=== PATIENT | male | born 1990 | race Caucasian/White ===

== ENCOUNTER 2016-05-27 02:06 | Emergency (ER) ==
[2016-05-27 02:19] VITALS: TEMP 98.8; BMI 37.8
[2016-05-27] MEDS ORDERED: SODIUM CHLORIDE 1,000 ML IV STA (02:35)
[2016-05-27] MEDS ORDERED: DEMEROL 25 MG/ML SYRINGE IVP STA (02:35)
[2016-05-27] MEDS ORDERED: ZOFRAN 4 MG/2 ML IVP STA ×2 (02:35→06:13)
[2016-05-27 02:49] LABS: BASOPHILS % (AUTO) 0.5 % (0.0-3.0); EOSINOPHILS # (AUTO) 0.1 K/ul (0.0-0.7); EOSINOPHILS % (AUTO) 1.1 % (0.0-7.0); HEMATOCRIT 47.3 % (42.0-52.0); HEMOGLOBIN 15.5 g/dl (14.0-18.0); IMMATURE GRANULOCYTE % (AUTO) 0.3 % (0.0-5.0); LYMPHOCYTES # (AUTO) 0.9 K/uL (0.60-3.4); LYMPHOCYTES % (AUTO) 9.7 (10.0-50.0); MEAN CORPUSCULAR HEMOGLOBIN 28.2 pg (27.0-31.0); MEAN CORPUSCULAR HGB CONC 32.8 (31.8-35.4); MONOCYTES # (AUTO) 0.8 K/uL (0.4-2.0); NEUTROPHILS % (AUTO) 79.4; PLATELET COUNT 241 10^3/uL (140-440); WHITE BLOOD COUNT 8.77 K/ul (4.2-10.2)
[2016-05-27 03:05] LABS: ALBUMIN 3.5 g/dL (3.4-5.0); ALBUMIN/GLOBULIN RATIO 1.03; ANION GAP 10.6; BILIRUBIN,TOTAL 0.73 mg/dL (0.00-1.20); BUN/CREATININE RATIO 10.58; CALCIUM 8.5 mg/dL (8.2-10.2); CREATININE 0.85 mg/dL (0.60-1.10); POTASSIUM 3.6 mmol/L (3.5-5.1); TOTAL PROTEIN 6.9 g/dL (6.4-8.2)
--- NOTE | 2016-05-27 03:56 | CT ---
EXAM: CT abdomen pelvis without intravenous contrast 05/27/2016. Sagittal and coronal reformatted images obtained HISTORY: Vomiting COMPARISON: 05/27/2014 FINDINGS: Hepatic steatosis. The liver and gallbladder show no acute abnormality. The adrenal glands and kidneys show no acute abnormality. There is no urinary obstruction. The spleen and pancreas show no acute abnormality. No bowel obstruction. Normal appendix. Unremarkable urinary bladder. No free air or free fluid. No acute osseous abnormality IMPRESSION: 1. Hepatic steatosis. 2. No urinary or bowel obstruction and normal appendix. 3. No acute inflammatory process identified within the abdomen or pelvis within the limitation of a noncontrast enhanced examination.
[2016-05-27 06:05] LABS: BILIRUBIN,URINE Negative (NEGATIVE); KETONES,URINE Negative (NEGATIVE); LEUKOCYTE ESTERASE ,URINE Negative (NEGATIVE); NITRITE,URINE Negative (NEGATIVE); PROTEIN,URINE Trace (NEGATIVE); URINE, BLOOD Negative (NEGATIVE)
[2016-05-27 06:11] VITALS: BP 158/109
--- NOTE | 2016-05-27 06:16 | ED.PDOC ---
General ED Provider: Dr. GERALD GARAY-ER Chief Complaint: Nausea/Vomiting Stated Complaint: im throwin up and having diarrhea Time Seen by Physician: 02:10 Mode of Arrival: Walk-In Information Source: Patient Exam Limitations: No limitations Nursing and Triage Documentation Reviewed and Agree: Yes GI Complaint Exam - Vomiting/Diarrhea Complaint/Exam Onset/Duration: less than 24hrs Symptoms Are: Still present Episodes of Vomiting over last 24 Hours: 5 Episodes of Diarrhea Over Last 24 Hours: 3 Initial Severity: Mild Current Severity: Mild Character of Vomiting: Reports: Non-bilious Character of Diarrhea: Reports: Watery Aggravating: Reports: None Alleviating: Reports: None Associated Signs and Symptoms: Denies: Dizziness, Light-headedness, Melena, Hematemesis, Fever, Abdominal pain, Cramping Non-GI Risk Factors: Reports: None Related Surgical History: Reports: None Abdominal Findings: Present: None Kussmaul Respirations Present: No Differential Diagnoses: Dehydration, Viral Gastroenteritis, Bacterial Gastroenteritis, UTI Review of Systems - Review Of Systems Constitutional: Reports: No symptoms Eyes: Reports: No symptoms Ears, Nose, Mouth, Throat: Reports: No symptoms Respiratory: Reports: No symptoms Cardiac: Reports: No symptoms GI: Reports: Diarrhea, Nausea, Vomiting : Reports: No symptoms Musculoskeletal: Reports: No symptoms Skin: Reports: No symptoms Neurological: Reports: No symptoms Endocrine: Reports: No symptoms Hematologic/Lymphatic: Reports: No symptoms All Other Systems: Reviewed and Negative Past Medical History - Past Medical History Endocrine: Reports: Unknown Cardiovascular: Reports: Unknown Respiratory: Reports: Unknown Hematological: Reports: Unknown Gastrointestinal: Reports: Unknown Genitourinary: Reports: Unknown Neuro/Psych: Reports: Unknown Musculoskeletal: Reports: Unknown Cancer: Reports: Unknown - Surgical History General Surgical History: Reports: Unknown - Family History Family History: Reports: Unknown - Social History Smoking Status: Never smoker Hx Substance Use: No Alcohol Screening: Occasionally Lives: With family - Immunizations Tetanus Shot up to Date: (UNKNOWN) Physical Exam - Physical Exam Appearance: Well-appearing, No pain distress, Well-nourished Eyes: ISAÍAS, EOMI, Conjunctiva clear ENT: Ears normal Neck: Supple Respiratory: Airway patent, Breath sounds clear, Breath sounds equal, Respirations nonlabored Cardiovascular: RRR, Pulses normal, No rub, No murmur GI/: Soft, Nontender, No masses, Bowel sounds normal, No Organomegaly Musculoskeletal: Normal strength, ROM intact, No edema, No calf tenderness Skin: Warm, Dry, Normal color Neurological: Sensation intact, Motor intact, Reflexes intact, Cranial nerves intact, Alert, Oriented Psychiatric: Affect appropriate, Mood appropriate Interpretation - Radiology Interpretation Radiology Interpretation By: Radiologist Radiology Results: Negative Exam Interpreted: CT Scan Re-Evaluation - Re-Evaluation Time of Re-Evaluation: 06:34 Status: Improved Vital Signs Stable: Yes Pain Level: 0 Appearance: NAD Lungs: Clear Skin: Warm and Dry Neuro: Alert and Oriented X3 CV: RRR Critical Care Note - Critical Care Note Total Time (mins): 0 Course - Course Hematology/Chemistry: 05/27/16 02:45 05/27/16 02:45 Orders, Labs, Meds: Lab Review 05/27/16 05/27/16 02:45 06:10 WBC 8.77 RBC 5.50 Hgb 15.5 Hct 47.3 MCV 86.0 MCH 28.2 MCHC 32.8 RDW Coeff of Clarissa 12.5 Plt Count 241 Immature Gran % (Auto) 0.3 Neut % (Auto) 79.4 Lymph % (Auto) 9.7 L [place] % (Auto) 9.0 Eos % (Auto) 1.1 Baso % (Auto) 0.5 Immature Gran # (Auto) 0.0 Neut # 7.0 H Lymph # 0.9 [place] # 0.8 Eos # 0.1 Baso # 0.0 Sodium 136 Potassium 3.6 Chloride 102 Carbon Dioxide 27 Anion Gap 10.6 BUN 9 Creatinine 0.85 Estimated GFR (MDRD) 109.00 BUN/Creatinine Ratio 10.58 Glucose 154 H Calcium 8.5 Total Bilirubin 0.73 AST 19 ALT 47 Alkaline Phosphatase 57 Total Protein 6.9 Albumin 3.5 Globulin 3.4 Albumin/Globulin Ratio 1.03 Amylase 16 L Lipase 16 Urine Color Yellow Urine Clarity Clear Urine pH 7.0 Ur Specific [place] 1.020 Urine Protein Trace Urine Glucose (UA) Negative Urine Ketones Negative Urine Blood Negative Urine Nitrite Negative Urine Bilirubin Negative Urine Urobilinogen 1.0 Ur Leukocyte Esterase Negative Ur Squamous Epith Cells 5-10 Urine Mucus Trace Orders Category Date Time Status IV [ED IV/MEDIPORT/POWERPORT] .ONCE EMERGENCY 05/27/16 02:35 Active AMYLASE Stat LAB 05/27/16 02:45 Completed CBC W/ AUTO DIFF Stat LAB 05/27/16 02:45 Completed COMPREHENSIVE METABOLIC PANEL Stat LAB 05/27/16 02:45 Completed LIPASE Stat LAB 05/27/16 02:45 Completed MOLECULAR GROUP A STREP Stat LAB 05/27/16 03:30 Results STREP SCREEN Stat LAB 05/27/16 03:30 Results URINALYSIS C & S IF INDICATED Stat LAB 05/27/16 06:10 Completed 0.9 % Sodium Chloride [Saline Flush] MEDS 05/27/16 02:35 Ordered 1 syr IVF PRN PRN Meperidine HCl/Pf [Demerol 25 mg/ml Syringe] MEDS 05/27/16 02:35 Discontinued 25 mg IVP ONCE STA Ondansetron HCl/Pf [Zofran 4 mg/2 ml] MEDS 05/27/16 02:35 Discontinued 4 mg IVP ONCE STA Ondansetron HCl/Pf [Zofran 4 mg/2 ml] MEDS 05/27/16 06:13 Discontinued 4 mg IVP ONCE STA Sodium Chloride 0.9% [Sodium Chloride] 1,000 ml MEDS 05/27/16 02:35 Active IV 250 mls/hr CT ABDOMEN/PELVIS WO CONTRAST Stat RADS 05/27/16 02:36 Completed Medications Generic Name Dose Route Start Last Admin Trade Name Freq PRN Reason Stop Dose Admin Sodium Chloride 1,000 mls @ 250 mls/hr 05/27/16 02:35 05/27/16 03:32 Sodium Chloride IV 05/27/16 06:34 250 mls/hr .Q4H STA Administration Sodium Chloride 1 syr 05/27/16 02:35 Saline Flush IVF PRN PRN To flush IV Discontinued Medications Generic Name Dose Route Start Last Admin Trade Name Freq PRN Reason Stop Dose Admin Meperidine HCl 25 mg 05/27/16 02:35 05/27/16 02:56 Demerol 25 Mg/Ml Syringe IVP 05/27/16 02:36 25 mg ONCE STA Administration Ondansetron HCl 4 mg 05/27/16 02:35 05/27/16 02:56 Zofran 4 Mg/2 Ml IVP 05/27/16 02:36 4 mg ONCE STA Administration Ondansetron HCl 4 mg 05/27/16 06:13 Zofran 4 Mg/2 Ml IVP 05/27/16 06:14 ONCE STA Vital Signs: Temp Pulse Resp BP Pulse Ox 05/27/16 06:11 158/109 H 05/27/16 02:07 98.8 F 124 H 18 178/98 H 96 Departure - Departure Time of Disposition: 06:34 Disposition: HOME SELF-CARE Discharge Problem: Enteritis Instructions: Enteritis (ED) Condition: Good Pt referred to PMD for follow-up: Yes Additional Instructions: sips of liquids..zofran 4mg q 4hrs prn nausea #3--f/u with pcp Allergies/Adverse Reactions: Allergies blueberry [Blueberry] Allergy (Severe, Verified 05/27/16 02:17) Anaphylaxis cinnamon Allergy (Mild, Verified 05/27/16 02:17) Home Medications: Ambulatory Orders 1 [No Reported Medications] 05/27/14 Disposition Discussed With: Patient
[2016-05-27 06:20] LABS: ADD URINE MICROSCOPIC YES
== END 2016-05-27 06:45 | disposition home or self-care (01) ==
LOC: ED 02:06
DX: K52.9 Noninfective gastroenteritis and colitis, unspecified (principal)
CPT/HCPCS: 36415; 80053; 81001; 82150; 83690; 85025; 87651; 87880; 96361; 96374; 96375; 96376; 99283

== ENCOUNTER 2016-08-10 09:11 | Outpatient (CLI) ==
[2016-08-10 09:36] LABS: BILIRUBIN,URINE Negative (NEGATIVE); KETONES,URINE Negative (NEGATIVE); LEUKOCYTE ESTERASE ,URINE Negative (NEGATIVE); NITRITE,URINE Negative (NEGATIVE); PH,URINE 6.5 (5-9); PROTEIN,URINE Negative (NEGATIVE); URINE, BLOOD Trace-intact (NEGATIVE)
[2016-08-10 09:39] LABS: ADD URINE MICROSCOPIC YES
[2016-08-10 09:41] LABS: BASOPHILS # (AUTO) 0.1 K/uL (0-0.2); BASOPHILS % (AUTO) 1.3 % (0.0-3.0); EOSINOPHILS # (AUTO) 0.1 K/ul (0.0-0.7); EOSINOPHILS % (AUTO) 1.8 % (0.0-7.0); HEMATOCRIT 46.4 % (42.0-52.0); HEMOGLOBIN 15.7 g/dl (14.0-18.0); IMMATURE GRANULOCYTE % (AUTO) 0.2 % (0.0-5.0); LYMPHOCYTES # (AUTO) 1.9 K/uL (0.60-3.4); MEAN CORPUSCULAR HEMOGLOBIN 28.6 pg (27.0-31.0); MEAN CORPUSCULAR HGB CONC 33.8 (31.8-35.4); MEAN CORPUSCULAR VOLUME 84.5 fl (80.0-94.0); MONOCYTES # (AUTO) 0.6 K/uL (0.4-2.0); MONOCYTES % (AUTO) 10.5 (0-10); NEUTROPHILS # (AUTO) 2.9 K/ul (2.0-6.9); NEUTROPHILS % (AUTO) 51.2; PLATELET COUNT 268 10^3/uL (140-440); RED BLOOD COUNT 5.49 10^6/ul (4.70-6.10); WHITE BLOOD COUNT 5.55 K/ul (4.2-10.2)
[2016-08-10 10:15] LABS: ALBUMIN 3.6 g/dL (3.4-5.0); ANION GAP 8.9; BILIRUBIN,TOTAL 0.43 mg/dL (0.00-1.20); BUN/CREATININE RATIO 12.35; CALCIUM 8.7 mg/dL (8.2-10.2); CHOL/HDL RATIO 5.8 (4.5-6.4); CREATININE 0.89 mg/dL (0.60-1.10); POTASSIUM 3.9 mmol/L (3.5-5.1); TOTAL PROTEIN 7.2 g/dL (6.4-8.2)
== END 2016-08-10 09:12 | disposition home or self-care (01) ==
LOC: LAB 09:11
PROVIDERS: ATTEND Nurse Practitioner Family
DX: I10 Essential (primary) hypertension (principal); R10.84 Generalized abdominal pain; R73.09 Other abnormal glucose
CPT/HCPCS: 36415; 80053; 80061; 81001; 82150; 83036; 83690; 84439; 84443; 85025

== ENCOUNTER 2016-11-24 00:19 | Emergency (ER) ==
[2016-11-24 00:29] VITALS: TEMP 98.5; BMI 38.5
[2016-11-24] MEDS ORDERED: CATAPRES PO STA ×2 (00:47→04:16)
[2016-11-24] MEDS ORDERED: NORVASC PO STA (00:48)
[2016-11-24 01:04] LABS: BASOPHILS # (AUTO) 0.1 K/uL (0-0.2); BASOPHILS % (AUTO) 0.9 % (0.0-3.0); EOSINOPHILS # (AUTO) 0.2 K/ul (0.0-0.7); HEMATOCRIT 47.6 % (42.0-52.0); IMMATURE GRANULOCYTE % (AUTO) 0.3 % (0.0-5.0); LYMPHOCYTES # (AUTO) 2.6 K/uL (0.60-3.4); LYMPHOCYTES % (AUTO) 34.7 (10.0-50.0); MEAN CORPUSCULAR HEMOGLOBIN 28.5 pg (27.0-31.0); MEAN CORPUSCULAR HGB CONC 33.6 (31.8-35.4); MEAN CORPUSCULAR VOLUME 84.7 fl (80.0-94.0); MONOCYTES # (AUTO) 0.7 K/uL (0.4-2.0); MONOCYTES % (AUTO) 9.7 (0-10); NEUTROPHILS # (AUTO) 3.9 K/ul (2.0-6.9); NEUTROPHILS % (AUTO) 52.4; PLATELET COUNT 262 10^3/uL (140-440); RED BLOOD COUNT 5.62 10^6/ul (4.70-6.10); WHITE BLOOD COUNT 7.49 K/ul (4.2-10.2)
[2016-11-24 01:26] LABS: ALANINE AMINOTRANSFERASE 54 U/L (12-78); ALBUMIN 3.5 g/dL (3.4-5.0); ALBUMIN/GLOBULIN RATIO 0.97; ALKALINE PHOSPHATASE 64 U/L (50-136); AMYLASE 25 U/L (25-115); ANION GAP 14.8; ASPARTATE AMINO TRANSFERASE 20 U/L (15-37); BILIRUBIN,TOTAL 0.57 mg/dL (0.00-1.20); BLOOD UREA NITROGEN 8 mg/dL (7-18); BUN/CREATININE RATIO 7.92; CALCIUM 8.7 mg/dL (8.2-10.2); CARBON DIOXIDE 25 mmol/L (21-32); CHLORIDE 103 mmol/L (98-107); CREATINE KINASE 101 U/L; CREATININE 1.01 mg/dL (0.60-1.10); GLUCOSE 122 mg/dL (70-100); LIPASE 14 U/L (8-78); POTASSIUM 3.8 mmol/L (3.5-5.1); SODIUM 139 mmol/L (136-145); TOTAL PROTEIN 7.1 g/dL (6.4-8.2)
[2016-11-24 02:21] LABS: BILIRUBIN,URINE Negative (NEGATIVE); KETONES,URINE Negative (NEGATIVE); LEUKOCYTE ESTERASE ,URINE Negative (NEGATIVE); NITRITE,URINE Negative (NEGATIVE); PH,URINE 5.5 (5-9); PROTEIN,URINE Negative (NEGATIVE); URINE, BLOOD Negative (NEGATIVE)
[2016-11-24 02:22] LABS: ADD URINE MICROSCOPIC NO
[2016-11-24] MEDS ORDERED: ZESTRIL PO STA (02:38)
--- NOTE | 2016-11-24 02:42 | ED.PDOC ---
General ED Provider: Dr. GERALD GARAY-ER Chief Complaint: Chest Pain Stated Complaint: MY BP IS UP Time Seen by Physician: 00:10 Mode of Arrival: Walk-In Information Source: Patient Exam Limitations: No limitations [facility] Nursing and Triage Documentation Reviewed and Agree: Yes Cardiovascular Complaint Exam - Hypertension Complaint/Exam Onset/Duration: 220/110 Symptoms Are: Still present Timing: Constant Aggravating: Reports: None Alleviating: Reports: None Associated Signs and Symptoms: Reports: Chest pain. Denies: Vision changes, Anxiety, Recent stress, Headache, Numbness, Tingling, Weakness, Dizziness, Short of air, Swelling Related History: Reports: Rx noncompliance Related Surgical History: Reports: None Cardiac Risk Factors: Reports: Hypertension Recent Change in Medications: No (PATIENT HAS BEEN OFF MEDS) A/V [place]: No Papilledema Present: No JVD Present: No Carotid Bruit Present: No Femoral Pulses Bounding: No Differential Diagnoses: Hypertension Quality Indicator For Non-Traumatic Chest Pain/Syncope: EKG Performed Review of Systems - Review Of Systems Constitutional: Reports: No symptoms Eyes: Reports: No symptoms Ears, Nose, Mouth, Throat: Reports: No symptoms Respiratory: Reports: No symptoms Cardiac: Reports: Chest pain GI: Reports: No symptoms : Reports: No symptoms Musculoskeletal: Reports: No symptoms Skin: Reports: No symptoms Neurological: Reports: No symptoms Endocrine: Reports: No symptoms Hematologic/Lymphatic: Reports: No symptoms All Other Systems: Reviewed and Negative Past Medical History - Past Medical History Previously Healthy: Yes Endocrine: Reports: Unknown Cardiovascular: Reports: Hypertension Respiratory: Reports: Unknown Hematological: Reports: Unknown Gastrointestinal: Reports: Unknown Genitourinary: Reports: Unknown Neuro/Psych: Reports: Unknown Musculoskeletal: Reports: Unknown Cancer: Reports: Unknown - Surgical History General Surgical History: Reports: Unknown - Family History Family History: Reports: Unknown - Social History Smoking Status: Never smoker Hx Substance Use: No Alcohol Screening: None - Immunizations Tetanus Shot up to Date: Yes Physical Exam - Physical Exam Appearance: Well-appearing, No pain distress, Well-nourished Pain Distress: Mild Eyes: ISAÍAS, EOMI, Conjunctiva clear ENT: Ears normal, Nose normal, Oropharynx normal Neck: Supple Respiratory: Airway patent Cardiovascular: RRR, Pulses normal, No rub, No murmur GI/: Soft, Nontender, No masses, Bowel sounds normal, No Organomegaly Musculoskeletal: Normal strength, ROM intact, No edema, No calf tenderness Skin: Warm, Dry, Normal color Neurological: Sensation intact, Motor intact, Reflexes intact, Cranial nerves intact, Alert, Oriented Psychiatric: Affect appropriate Interpretation - Radiology Interpretation Radiology Interpretation By: Radiologist Radiology Results: Negative Exam Interpreted: CT Scan - EKG Interpretation Time of EKG #1: 02:42 Rate: Normal Rhythm: Sinus Ectopy: None [place]: NL ST Segment: Normal Re-Evaluation - Re-Evaluation Time of Re-Evaluation: 02:42 Status: Improved (BP 150/90--NO PAIN) Vital Signs Stable: Yes Pain Level: 0 Appearance: NAD Lungs: Clear Skin: Warm and Dry Neuro: Alert and Oriented X3 CV: RRR Critical Care Note - Critical Care Note Total Time (mins): 0 Course - Course Hematology/Chemistry: 11/24/16 00:56 11/24/16 00:56 Orders, Labs, Meds: Lab Review 11/24/16 11/24/16 00:56 02:15 WBC 7.49 RBC 5.62 Hgb 16.0 Hct 47.6 MCV 84.7 MCH 28.5 MCHC 33.6 RDW Coeff of Clarissa 12.2 Plt Count 262 Immature Gran % (Auto) 0.3 Neut % (Auto) 52.4 Lymph % (Auto) 34.7 [place] % (Auto) 9.7 Eos % (Auto) 2.0 Baso % (Auto) 0.9 Immature Gran # (Auto) 0.0 Neut # 3.9 Lymph # 2.6 [place] # 0.7 Eos # 0.2 Baso # 0.1 Sodium 139 Potassium 3.8 Chloride 103 Carbon Dioxide 25 Anion Gap 14.8 BUN 8 Creatinine 1.01 Estimated GFR (MDRD) 89.00 BUN/Creatinine Ratio 7.92 Glucose 122 H Calcium 8.7 Total Bilirubin 0.57 AST 20 ALT 54 Alkaline Phosphatase 64 Total Creatine Kinase 101 Troponin I < 0.0100 Total Protein 7.1 Albumin 3.5 Globulin 3.6 Albumin/Globulin Ratio 0.97 Amylase 25 Lipase 14 Urine Color Yellow Urine Clarity Clear Urine pH 5.5 Ur Specific [place] 1.025 Urine Protein Negative Urine Glucose (UA) Negative Urine Ketones Negative Urine Blood Negative Urine Nitrite Negative Urine Bilirubin Negative Urine Urobilinogen 0.2 Ur Leukocyte Esterase Negative Orders Category Date Time Status EKG-(ED ONLY) Stat CARDIO 11/24/16 00:46 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] .ONCE EMERGENCY 11/24/16 00:47 Active AMYLASE Stat LAB 11/24/16 00:56 Completed CBC W/ AUTO DIFF Stat LAB 11/24/16 00:56 Completed COMPREHENSIVE METABOLIC PANEL Stat LAB 11/24/16 00:56 Completed CREATINE KINASE Stat LAB 11/24/16 00:56 Completed LIPASE Stat LAB 11/24/16 00:56 Completed TROPONIN I Stat LAB 11/24/16 00:56 Completed URINALYSIS C & S IF INDICATED Stat LAB 11/24/16 02:15 Completed Amlodipine Besylate [Norvasc] MEDS 11/24/16 00:48 Discontinued 5 mg PO ONCE STA Clonidine HCl [Catapres] MEDS 11/24/16 00:47 Discontinued 0.1 mg PO ONCE STA Lisinopril [Zestril] MEDS 11/24/16 02:38 Discontinued 20 mg PO ONCE STA CT CHEST W/O CONTRAST Stat RADS 11/24/16 02:37 Ordered Medications Discontinued Medications Generic Name Dose Route Start Last Admin Trade Name Freq PRN Reason Stop Dose Admin Amlodipine Besylate 5 mg 11/24/16 00:48 11/24/16 00:53 Norvasc PO 11/24/16 00:49 5 mg ONCE STA Administration Clonidine 0.1 mg 11/24/16 00:47 11/24/16 00:53 Catapres PO 11/24/16 00:48 0.1 mg ONCE STA Administration Lisinopril 20 mg 11/24/16 02:38 Zestril PO 11/24/16 02:39 ONCE STA Vital Signs: Temp Pulse Resp BP Pulse Ox 11/24/16 00:20 98.5 F 103 H 20 172/123 H 96 MISSY Risk Score MISSY Risk Score: Risk Score Odds of by 30D 0 0.1 (0.1-0.2) 1 0.3 (0.2-0.3) 2 0.4 (0.3-0.5) 3 0.7 (0.6-0.9) 4 1.2 (1.0-1.5) 5 2.2 (1.9-2.6) 6 3.0 (2.5-3.6) 7 4.8 (3.8-6.1) Departure - Departure Time of Disposition: 02:43 Disposition: HOME SELF-CARE Discharge Problem: Hypertension Qualifiers: Hypertension type: essential hypertension Qualifier Code: (I10) Essential ( primary) hypertension Instructions: Hypertensive Crisis (ED) Condition: Good Pt referred to PMD for follow-up: Yes Additional Instructions: REFILL ZESTRIL 10MG Q DAILY #30--F/U WITH PCP Allergies/Adverse Reactions: Allergies blueberry [Blueberry] Allergy (Severe, Verified 11/24/16 00:29) Anaphylaxis cinnamon Allergy (Mild, Verified 11/24/16 00:29) Home Medications: Ambulatory Orders Acetaminophen [Tylenol] 650 mg PO Q4-6H PRN 08/10/16 Disposition Discussed With: Patient
--- NOTE | 2016-11-24 03:23 | CT ---
EXAM: CT of the chest without contrast. HISTORY: Hypertension. PROCEDURE: Contiguous axial CT images of the chest without contrast with coronal and sagittal refor mats. FINDINGS: The heart, mediastinum and thoracic aorta are normal in appearance. No infiltrate or conso lidation. The bones and soft tissues are unremarkable. The adrenal glands and liver are normal in ap pearance. Impression: Negative CT of the chest.
[2016-11-24] MEDS ORDERED: CATAPRES ONE (04:16)
[2016-11-24 05:14] VITALS: BP 147/90
== END 2016-11-24 05:14 | disposition home or self-care (01) ==
LOC: ED 00:19
DX: I10 Essential (primary) hypertension (principal); R07.9 Chest pain, unspecified; Z91.14 Patient's other noncompliance with medication regimen
CPT/HCPCS: 36415; 80053; 81001; 82150; 82550; 83690; 84484; 85025; 93005; 93010; 99283

== ENCOUNTER 2017-07-28 17:42 | Inpatient (IN) ==
--- NOTE | 2017-07-28 18:12 | ED.PDOC ---
General ED Provider: Dr. GERALD ROMAN Chief Complaint: Respiratory Complaint Stated Complaint: Cough, nasal congestion: Patient states has been ill for several days. He states the he has been coughing and productive of a white phlegm. Has experienced nasal congestion that is yellow blood tinged. He complains of having a headache located in the frontal area of scalp. Ia unsure if has run a fever. and states throat is sore and has had n/v/d. Is hypertensive and normally takes Lisinopril but ran out of his meds and could not fill med due to lack of insurance. Time Seen by Physician: 18:00 Mode of Arrival: Walk-In Information Source: Patient Exam Limitations: No limitations [facility] Nursing and Triage Documentation Reviewed and Agree: Yes Reviewed sepsis parameters & appropriate labs ordered?: Yes System Inflammatory Response Syndrome: Temp 101F or Greater, Pulse >90 BPM Sepsis Protocol: For patient's 13 years and over: Temp is 96.8 and below OR 101 and greater Pulse >90 BPM Resp >20/minute Acutely Altered Mental Status Are patient's symptoms suggestive of a new infection, such as: -Pneumonia -Skin, Soft Tissue -Endocarditis -UTI -Bone, Joint Infection -Implantable Device -Acute Abdominal Infection -Wound Infection -Meningitis -Blood Stream Catheter Infection -Unknown Respiratory Complaint Exam - Respiratory Complaint/Exam Symptoms Are: Still present Timing: Constant Initial Severity: Moderate Current Severity: Moderate Location: Nose, Throat, Chest Character: Reports: Productive cough Aggravating: Reports: None Alleviating: Reports: None Associated Signs and Symptoms: Reports: Dyspnea, Fever, Chills, Sinus discomfort , Vomiting, Sore throat, Decreased oral intake, Increased thirst Related History: Denies: Similar episode, Allergic reaction, Seasonal allergies History of Healthcare-Acquired Pneumonia: No Related Surgical History: Reports: None Pulmonary Embolism Risk Factors: None Cardiac Risk Factors: Reports: Hypertension Pseudomonas Risk Factors: Reports: None Status Asthmaticus Risk Factors: Reports: None Home Oxygen Use: No Recent Stress Test: No Recent Echo/LV Function: No Current Antibiotic Use: No Current Asthma Medication Use: No Respiratory Distress: None Inadequate Respiratory Effort: No Dysphagia Present: No Stridor Present: No JVD Present: No Accessory Muscle Use: No Retractions: Not Present Diminished Breath Sounds: No Sinus Tenderness: Maxillary Grunting Respirations: No Kussmaul Respirations: No Differential Diagnoses: Pneumonia, Sinusitis, URI, Other (Hypertension uncontolled) Review of Systems - Review Of Systems Constitutional: Reports: Fever, Malaise, Weakness, Sweats, Loss of appetite Eyes: Reports: No symptoms Ears, Nose, Mouth, Throat: Reports: Mouth pain, Throat pain Respiratory: Reports: Cough, Short of air Cardiac: Reports: No symptoms, Lightheadedness. Denies: Chest pain, Edema, Irregular heart rate, Palpitations, Syncope GI: Reports: Nausea, Vomiting. Denies: Abdomen distended, Abdominal pain, Diarrhea : Reports: No symptoms Musculoskeletal: Reports: No symptoms Skin: Reports: No symptoms Neurological: Reports: No symptoms Endocrine: Reports: No symptoms Hematologic/Lymphatic: Reports: No symptoms All Other Systems: Reviewed and Negative Past Medical History - Past Medical History Previously Healthy: Yes Endocrine: Reports: Unknown Cardiovascular: Reports: Hypertension Respiratory: Reports: Unknown Hematological: Reports: Unknown Gastrointestinal: Reports: Unknown Genitourinary: Reports: Unknown Neuro/Psych: Reports: Unknown Musculoskeletal: Reports: Unknown Cancer: Reports: Unknown - Surgical History General Surgical History: Reports: Unknown - Family History Family History: Reports: Unknown - Social History Smoking Status: Never smoker Hx Substance Use: No Alcohol Screening: None Physical Exam - Physical Exam Appearance: Ill-appearing Ill-appearing: Severe Pain Distress: Moderate Eyes: ISAÍAS, EOMI, Conjunctiva clear ENT: Ears normal, Nose normal, Erythema Neck: Supple Respiratory: Airway patent, Breath sounds clear, Breath sounds equal Cardiovascular: RRR, Pulses normal, No rub GI/: Soft, Nontender, No masses, Bowel sounds normal Musculoskeletal: Normal strength, ROM intact, No edema Skin: Warm, Dry, Normal color Neurological: Sensation intact, Motor intact, Reflexes intact, Alert, Oriented, Disoriented Psychiatric: Affect appropriate, Mood appropriate, Anxious Physician Notification - Case Discussed Physician Notified: Discussed -Dr Walker who agrees to accept patient and assume ER care Time of Notification: 19:45 Critical Care Note - Critical Care Note Total Time (mins): 30 Course - Course Hematology/Chemistry: 07/28/17 18:47 07/28/17 18:47 Orders, Labs, Meds: Lab Review 07/28/17 07/28/17 07/28/17 18:08 18:47 18:47 WBC 8.12 RBC 5.82 Hgb 16.8 Hct 48.9 MCV 84.0 MCH 28.9 MCHC 34.4 RDW Coeff of Clarissa 12.5 Plt Count 285 Immature Gran % (Auto) 0.2 Neut % (Auto) 75.1 Lymph % (Auto) 11.8 [place] % (Auto) 10.8 H Eos % (Auto) 1.2 Baso % (Auto) 0.9 Immature Gran # (Auto) 0.0 Neut # (Auto) 6.1 Lymph # (Auto) 1.0 [place] # (Auto) 0.9 Eos # (Auto) 0.1 Baso # (Auto) 0.1 Sodium 137 Potassium 3.7 Chloride 102 Carbon Dioxide 24 Anion Gap 14.7 BUN 8 Creatinine 0.91 Estimated GFR (MDRD) 100.00 BUN/Creatinine Ratio 8.79 Glucose 146 H Lactic Acid Calcium 9.6 Total Bilirubin 0.6 AST 21 ALT 53 Alkaline Phosphatase 77 Total Protein 8.3 H Albumin 3.9 Globulin 4.4 Albumin/Globulin Ratio 0.89 Influ A Molecular Assay Negative by naat Influ B Molecular Assay Negative by naat 07/28/17 18:47 WBC RBC Hgb Hct MCV MCH MCHC RDW Coeff of Clarissa Plt Count Immature Gran % (Auto) Neut % (Auto) Lymph % (Auto) [place] % (Auto) Eos % (Auto) Baso % (Auto) Immature Gran # (Auto) Neut # (Auto) Lymph # (Auto) [place] # (Auto) Eos # (Auto) Baso # (Auto) Sodium Potassium Chloride Carbon Dioxide Anion Gap BUN Creatinine Estimated GFR (MDRD) BUN/Creatinine Ratio Glucose Lactic Acid 14.5 Calcium Total Bilirubin AST ALT Alkaline Phosphatase Total Protein Albumin Globulin Albumin/Globulin Ratio Influ A Molecular Assay Influ B Molecular Assay Orders Category Date Time Status EKG-(ED ONLY) Stat CARDIO 07/28/17 18:13 Completed BLOOD CULTURE (ED ONLY) Stat LAB 07/28/17 18:47 Received CBC W/ AUTO DIFF Stat LAB 07/28/17 18:47 Completed CMP [COMPREHENSIVE METABOLIC PANEL] Stat LAB 07/28/17 18:47 Completed FLU A & B MOLECULAR [FLU A/B MOLECULAR] Stat LAB 07/28/17 18:08 Completed LACTIC ACID Stat LAB 07/28/17 18:47 Completed PROCALCITONIN Stat LAB 07/28/17 18:47 Received RAPID STREP SCREEN [MOLECULAR GROUP A STREP] Stat LAB 07/28/17 18:08 Completed UA [URINALYSIS C & S IF INDICATED] Stat LAB 07/28/17 18:13 Uncollected Clonidine HCl [Catapres] MEDS 07/28/17 18:16 Discontinued 0.1 mg PO ONCE STA Ondansetron HCl/Pf [Zofran 4 mg/2 ml] MEDS 07/28/17 18:16 Discontinued 4 mg IVP ONCE STA Sodium Chloride 0.9% [Sodium Chloride] 1,000 ml MEDS 07/28/17 18:15 Active IV BOLUS CHEST, 1V AP ONLY Stat RADS 07/28/17 18:43 Completed Medications Generic Name Dose Route Start Last Admin Trade Name Freq PRN Reason Stop Dose Admin Sodium Chloride 1,000 mls @ 250 mls/hr 07/28/17 18:15 07/28/17 18:34 Sodium Chloride IV 07/28/17 22:14 250 mls/hr BOLUS STA Administration Discontinued Medications Generic Name Dose Route Start Last Admin Trade Name Freq PRN Reason Stop Dose Admin Clonidine 0.1 mg 07/28/17 18:16 07/28/17 18:55 Catapres PO 07/28/17 18:17 0.1 mg ONCE STA Administration Ondansetron HCl 4 mg 07/28/17 18:16 07/28/17 18:33 Zofran 4 Mg/2 Ml IVP 07/28/17 18:17 4 mg ONCE STA Administration Vital Signs: Temp Pulse Resp BP Pulse Ox 07/28/17 19:20 192/123 H 07/28/17 18:36 189/125 H 07/28/17 17:44 101.7 F H 124 H 20 185/150 H 96 Departure - Departure Time of Disposition: 19:45 Disposition: ADMITTED INPATIENT Discharge Problem: Uncontrolled hypertension, Hyperglycemia URI (upper respiratory infection) Qualifiers: URI type: unspecified URI Qualified Code(s): J06.9 - Acute upper respiratory infection, unspecified Sinusitis Qualifiers: Sinusitis location: frontal Chronicity: acute Sepsis Qualifiers: Sepsis type: sepsis due to unspecified organism Qualified Code(s): A41.9 - Sepsis, unspecified organism Condition: Good Pt referred to PMD for follow-up: Yes IPMP verified?: No Allergies/Adverse Reactions: Allergies blueberry [Blueberry] Allergy (Severe, Verified 07/28/17 17:47) Anaphylaxis cinnamon Allergy (Mild, Verified 07/28/17 17:47) Disposition Discussed With: Patient
[2017-07-28] MEDS ORDERED: SODIUM CHLORIDE 1,000 ML IV STA (18:15)
[2017-07-28] MEDS ORDERED: CATAPRES PO STA (18:16)
[2017-07-28] MEDS ORDERED: ZOFRAN 4 MG/2 ML IVP STA (18:16)
--- NOTE | 2017-07-28 19:18 | DI ---
EXAM: One-view chest HISTORY: Coughing congested TECHNIQUE: Single frontal view of the chest was obtained. Comparison 02/20/2014. FINDINGS: The heart is normal size. Lungs are clear. The pulmonary vasculature appears normal. Th e costophrenic angles are sharp. IMPRESSION: No active cardiopulmonary disease.
[2017-07-28] MEDS ORDERED: ROCEPHIN 1 GM in SODIUM CHLORIDE 50 ML IV STA (19:47)
[2017-07-28] MEDS ORDERED: DECADRON 4 MG/ML SDV IVP STA (19:49)
[2017-07-28] MEDS ORDERED: ROCEPHIN ONE (19:53)
[2017-07-28] MEDS ORDERED: TYLENOL PO PRN (20:06)
[2017-07-28] MEDS ORDERED: LOPRESSOR IVP STA ×2 (20:09→21:09)
[2017-07-28] MEDS ORDERED: ZESTRIL PO SCH ×2 (20:30→21:15)
--- NOTE | 2017-07-28 20:46 | CT ---
EXAM: Noncontrast CT head. HISTORY: Headache. COMPARISON: 02/20/2014 CT head. TECHNIQUE: Noncontrast CT head was performed with axial , coronal and sagittal reconstructions. Findings: There is preservation of the lopez-white differential without evidence of definitive large vessel acut e cortical infarct identified. No acute intracranial hemorrhage is identified. No midline shift is i dentified. No definitive intracranial mass lesion is identified within technical limitations of nonco ntrast CT. The basal cisterns are patent. The ventricles are normal in size and configuration. Limi uday evaluation of the skull demonstrates no visualized lucent skull acute fractures or destructive os seous lesions identified within the visualized portions of the skull. Partially visualized paranasal sinuses and mastoid air cells demonstrate moderate mucosal thickening in the left maxillary sinus, m ild mucosal thickening at the right maxillary sinus as well as mild mucosal thickening in the ethmoid air cells. Impression: 1. No acute intracranial hemorrhage or definitive large vessel acute cortical infarct identified. 2. Paranasal sinus disease as detailed.
[2017-07-28 22:03] VITALS: BMI 38.6
[2017-07-28] MEDS: SODIUM CHLORIDE 1,000 ML IV SCH (22:28)
[2017-07-29] MEDS: SODIUM CHLORIDE 1,000 ML IV SCH (03:19)
[2017-07-29] MEDS ORDERED: TORADOL IVP STA (08:04)
[2017-07-29] MEDS ORDERED: DECADRON 4 MG/ML SDV IM STA (08:04)
[2017-07-29] MEDS ORDERED: ZESTRIL PO STA (08:58)
[2017-07-29 15:17] VITALS: BP 113/59; TEMP 97.8
[2017-07-29] MEDS ORDERED: ROCEPHIN 1 GM in SODIUM CHLORIDE 50 ML IV SCH (21:00)
[2017-07-30] MEDS ORDERED: ZESTRIL PO SCH (09:00)
--- NOTE | 2017-08-26 15:05 | HP ---
DATE OF SERVICE: 07/28/17 CHIEF COMPLAINT: Cough, congestion. HISTORY OF PRESENT ILLNESS: This is a 26 year old male who came to the emergency room with two days onset of nasal congestion, getting a yellow with blood drainage. He has been having some headaches in the frontal area. Cough productive with yellow to white colored phlegm. He had a fever. He states that his throat is sore and has nausea, vomiting and diarrhea. He vomited one to two times. Nonbloody diarrhea. Only food material, no bile. Diarrhea watery. Temperature 101, blood pressure 185/115. The patient was seen by Dr. Mcclain in the emergency room and was given a dose of Clonidine 0.1 mg, Lisinopril 10 mg and Zofran was given and an IV fluid bolus given. Meanwhile, the labs were CBC and CMP Normal. Elevated sugar at 146. Monocytes were high at 10.8. Influenza negative. The patient was given the dose of Clonidine, which did not help with the blood pressure and at that time the patient with the fever and uncontrolled blood pressure, the patient was admitted to the hospital for uncontrolled blood pressure, upper respiratory infection and febrile illness. REVIEW OF SYSTEMS: CONSTITUTIONAL: Weakness, tiredness. Fever, no chills. HEENT: Frontal headache. ENDOCRINE: No weight gain; no weight loss. CVS: No chest pain. No PND, no orthopnea. No shortness of breath. No PND, no orthopnea. RESPIRATORY: Cough and congestion. No hemoptysis. GI: Nausea, vomiting. Abdominal discomfort. Diarrhea. No melena. : No hematuria. No polyuria. MUSCULOSKELETAL: No joint swelling. PSYCHIATRIC: Not anxious. No depression. No suicidal thoughts. No homicidal thoughts. SKIN: Intact, no open lesions. CT of the head in the emergency room was negative. PAST MEDICAL HISTORY: Hypertension GERD Anxiety Migraines Heart murmur as a child PAST SURGICAL HISTORY: Ear tubes Spinal tap PERSONAL HISTORY: Never smoked and no alcohol and drugs. He has not been depressed. FAMILY HISTORY: High blood pressure. MEDICATIONS: Lisinopril ALLERGIES: Blueberry and cinnamon. PHYSICAL EXAMINATION: V/S: Blood pressure 201/131, 187/126, heart rate 124, temperature 101.7, respiratory rate 20, saturation 96. HEENT: Atraumatic, normocephalic. No scleral icterus. Mucosa dry. Frontal headache. NECK: Supple. No JVD, no bruit. No lymphadenopathy. No thyromegaly. HEART: S1, S2 normal. No murmur. No cyanosis or clubbing. No ascites. LUNGS: Decreased and clear. No rales or rhonchi. ABDOMEN: Soft, tender. Bowel sounds are active. No CVA tenderness. No rigidity or guarding. EXTREMITIES: No pedal edema. No cyanosis or clubbing MUSCULOSKELETAL: Normal joints, no swelling. NEUROLOGIC: The patient is awake, alert and oriented times three. SKIN: Intact; no open lesions. LYMPHATIC: No lymph nodes palpable. LABS: White count 8.12, hematoglobin 16.8, hematocrit 48.9, platelet count 285 , sodium 137, potassium 3.0, chloride 102, bicarb 24, BUN 8, creatinine 0.891, glucose 146. Influenza A and B are negative. ASSESSMENT: 1. UNCONTROLLED HYPERTENSION 2. UPPER RESPIRATORY INFECTION 3. HYPERGLYCEMIA PLAN: 1. Admit the patient to the regular floor. 2. CBC, CMP today and daily. 3. Cardiac enzymes and Troponins. 4. Regular diet. 5. Continue with Lisinopril 40 mg p.o. daily. 6. Lopressor 5 mg IV push prn for systolic blood pressure more than 160. 7. Tylenol for fever. TIME SPENT: MORE THAN 65 minutes MTDD
--- NOTE | 2017-08-26 15:19 | DS ---
DATE OF SERVICE: 07/29/17 FINAL DIAGNOSIS: 1. HYPERTENSION UNCONTROLLED 2. UPPER RESPIRATORY INFECTION 3. SINUS HEADACHE WITH ACUTE SINUSITIS 4. GASTROENTERITIS 5. ANXIETY PLAN: 1. Discharge the patient home. 2. Lisinopril 20 mg daily. 3. Augmentin 500 mg p.o. daily. 4. Prednisone 10 mg twice daily. 5. Follow up with Dr. Walker as the [facility]. 6. Diet: Regular. 7. Activity: As much as tolerated. DISEASE SPECIFIC EDUCATION: About the uncontrolled blood pressure and intracranial bleed were discussed. HOSPITAL COURSE: Blanquita Perez, who is a 26 year old male, came to the emergency room with headache, cough, congestion. He started vomiting and nausea. He then started having some headache. He was seen by Dr. Mcclain in the emergency room. Blood pressure was 185/151, 181/125. He was given a dose of Clonidine 0.1 and it did not help the blood pressure. Lopressor 5 mg was given and 10 mg was given, which did still kept the blood 187/126 and 166/98. The patient stated that he was having cough and cold symptoms, so he started taking the decongestant over the counter, which might have increased the blood pressure. He does not take any drugs or any recreational medications. CT of the head was negative. After initial treatment failed in the emergency room, the patient was admitted to the hospital. Overnight the Lopressor was given, which did bring the blood pressure down. With the fluids and the Decadron, the patient started feeling better. He was up and about walking and did not have any problems. At that time, the patient is being discharged to home and advised to continue the Lisinopril 20 mg instead of 40 mg. No more decongestants. Continue the Augmentin and Prednisone. Will follow up with the patient in the office. TIME SPENT: MORE THAN 65 MINUTES MTDD
== END 2017-07-29 16:10 | disposition home or self-care (01) | DRG 153 ==
LOC: ED 17:42 → MEDSURG A 20:28
PROVIDERS: ADMIT Emergency Medicine; ATTEND Emergency Medicine
DX: J06.9 Acute upper respiratory infection, unspecified (principal); I10 Essential (primary) hypertension; K52.9 Noninfective gastroenteritis and colitis, unspecified; J32.1 Chronic frontal sinusitis; R73.9 Hyperglycemia, unspecified; R51 Headache; R50.9 Fever, unspecified; T46.4X6A Underdosing of angiotensin-converting-enzyme inhibitors, initial encounter; F41.9 Anxiety disorder, unspecified; Z91.120 Patient's intentional underdosing of medication regimen due to financial hardship; Z79.899 Other long term (current) drug therapy
CPT/HCPCS: 36415; 80053; 80306; 81001; 82962; 83605; 84145; 85025; 87040; 87502; 87651; 93005; 93010; 96361; 96365; 96375; 96376; 99284

== ENCOUNTER 2017-10-25 04:00 | Emergency (ER) ==
[2017-10-25 04:13] VITALS: BP 165/112; TEMP 97.1; BMI 38.9
--- NOTE | 2017-10-25 05:22 | ED.PDOC ---
General ED Provider: Dr. ROSA JASMINE Chief Complaint: Nausea/Vomiting Stated Complaint: Patient states that he did not feel well today. states that he had run out of his medications for blood pressrue which he refilled today. Took his morining dose last night at 10 pm. was worried about blood pressure elevation. Admits to history of anxeity and painc attacks which he states he know does not help his blood pressure . Time Seen by Physician: 05:23 Mode of Arrival: Walk-In Information Source: Patient Exam Limitations: No limitations Primary Care Provider: YORDAN KOLB Nursing and Triage Documentation Reviewed and Agree: Yes Reviewed sepsis parameters & appropriate labs ordered?: Yes System Inflammatory Response Syndrome: Not Applicable Sepsis Protocol: For patient's 13 years and over: Temp is 96.8 and below OR 101 and greater Pulse >90 BPM Resp >20/minute Acutely Altered Mental Status Are patient's symptoms suggestive of a new infection, such as: -Pneumonia -Skin, Soft Tissue -Endocarditis -UTI -Bone, Joint Infection -Implantable Device -Acute Abdominal Infection -Wound Infection -Meningitis -Blood Stream Catheter Infection -Unknown Miscellaneous Complaint Exam - Complex/Multi-System Complaint/Exam Onset/Duration: 1 day Symptoms Are: Still present Initial Severity: Mild Current Severity: Mild Associated Signs and Symptoms: Reports: Nausea. Denies: Headache, Chest pain, Vomiting, Diarrhea, Back pain, Fever Recent Echo/LV Function: No Respiratory Distress: None JVD Present: No Tachypnea Present: No Abdominal Findings: Present: Normal findings Glascow Coma Scale (see protocol): 15 Meningeal Signs Positive: No Focal Weakness: Present: None Focal Sensory Loss: Present: None Gait: Normal Gag Reflex Present: Yes Babinski Sign: Negative Right, Negative Left Skin Findings: Present: Normal findings Joint Swelling Present: No In-Dwelling Device Present: No Review of Systems - Review Of Systems Constitutional: Reports: No symptoms Eyes: Reports: No symptoms Ears, Nose, Mouth, Throat: Reports: No symptoms Respiratory: Reports: No symptoms Cardiac: Reports: No symptoms GI: Reports: Nausea : Reports: No symptoms Musculoskeletal: Reports: No symptoms Skin: Reports: No symptoms Neurological: Reports: Anxiety Endocrine: Reports: No symptoms Hematologic/Lymphatic: Reports: No symptoms All Other Systems: Reviewed and Negative Past Medical History - Past Medical History Previously Healthy: Yes Endocrine: Reports: Unknown Cardiovascular: Reports: Hypertension Respiratory: Reports: Unknown Hematological: Reports: Unknown Gastrointestinal: Reports: Unknown Genitourinary: Reports: Unknown Neuro/Psych: Reports: Anxiety Musculoskeletal: Reports: Unknown Cancer: Reports: Unknown - Surgical History General Surgical History: Reports: Unknown - Family History Family History: Reports: Unknown - Social History Smoking Status: Never smoker Hx Substance Use: No Alcohol Screening: None - Immunizations Tetanus Shot up to Date: (UNKNOWN) Physical Exam - Physical Exam Appearance: Well-appearing, Obese Pain Distress: None Neck: Supple Respiratory: Airway patent, Breath sounds clear, Breath sounds equal, Respirations nonlabored Cardiovascular: RRR, Pulses normal, No rub, No murmur Musculoskeletal: Normal strength, ROM intact, No edema, No calf tenderness Skin: Warm, Dry, Normal color Neurological: Sensation intact, Motor intact, Reflexes intact, Cranial nerves intact, Alert, Oriented Psychiatric: Anxious Re-Evaluation - Re-Evaluation Time of Re-Evaluation: 05:28 Status: Improved Vital Signs Stable: Yes (152/92) Critical Care Note - Critical Care Note Total Time (mins): 0 Course - Course Vital Signs: Temp Pulse Resp BP Pulse Ox 10/25/17 04:02 97.1 F L 90 20 165/112 H 96 Departure - Departure Time of Disposition: 05:25 Disposition: HOME SELF-CARE Discharge Problem: Uncontrolled hypertension Instructions: Hypertension (ED) Condition: Stable Pt referred to PMD for follow-up: Yes IPMP verified?: No Additional Instructions: Resume your morning dose today monitor you blood pressure and bring log to the doctor. Work on weight loss Avoid excess salt intake. Exercise sleep better Worry less Ask your Doctor whether you are a candidate for SSRI for depression and anxiety Allergies/Adverse Reactions: Allergies blueberry [Blueberry] Allergy (Severe, Verified 10/25/17 04:13) Anaphylaxis cinnamon Allergy (Mild, Verified 10/25/17 04:13)
== END 2017-10-25 05:28 | disposition home or self-care (01) ==
LOC: ED 04:00
DX: I16.0 Hypertensive urgency (principal); Z91.14 Patient's other noncompliance with medication regimen
CPT/HCPCS: 99282

== ENCOUNTER 2017-11-01 14:27 | Outpatient (CLI) | END 2017-11-01 14:28 | disposition home or self-care (01) | LOC: FCC-LAB 14:27 | PROVIDERS: ATTEND Nurse Practitioner Family | DX: F41.9 Anxiety disorder, unspecified (principal); I10 Essential (primary) hypertension; R19.7 Diarrhea, unspecified | CPT/HCPCS: 36415; 80053; 80306; 84439; 84443; 85025; 86677 ==

== ENCOUNTER 2017-11-23 14:08 | Outpatient (CLI) | END 2017-11-23 14:09 | disposition home or self-care (01) | LOC: FCC-LAB 14:08 | PROVIDERS: ATTEND Family Medicine | DX: J02.9 Acute pharyngitis, unspecified (principal) | CPT/HCPCS: 87651 ==

== ENCOUNTER 2018-07-14 11:50 | Outpatient (CLI) | END 2018-07-14 11:51 | disposition home or self-care (01) | LOC: RHC-LAB 11:50 | PROVIDERS: ATTEND Nurse Practitioner Family | DX: R05 Cough (principal); J02.9 Acute pharyngitis, unspecified | CPT/HCPCS: 87502; 87651 ==

== ENCOUNTER 2018-07-20 03:01 | Emergency (ER) ==
[2018-07-20 03:04] VITALS: BP 173/134; TEMP 98.5; BMI 39.8
--- NOTE | 2018-07-20 03:14 | ED.PDOC ---
General ED Provider: Dr. GERALD GARAY-ER Chief Complaint: Earache Stated Complaint: my ear hurts--im having trouble hearing out of it Time Seen by Physician: 03:13 Mode of Arrival: Walk-In Information Source: Patient Exam Limitations: No limitations Primary Care Provider: OMAR SAUCEDA Nursing and Triage Documentation Reviewed and Agree: Yes Does patient meet sepsis criteria?: No System Inflammatory Response Syndrome: Not Applicable Sepsis Protocol: For patient's 13 years and over: Temp is 96.8 and below OR 101 and greater Pulse >90 BPM Resp >20/minute Acutely Altered Mental Status Are patient's symptoms suggestive of a new infection, such as: -Pneumonia -Skin, Soft Tissue -Endocarditis -UTI -Bone, Joint Infection -Implantable Device -Acute Abdominal Infection -Wound Infection -Meningitis -Blood Stream Catheter Infection -Unknown EENT Complaint Exam - Ear Complaint/Exam Onset/Duration: tonight Symptoms Are: Still present Timing: Constant Initial Severity: Mild Current Severity: Mild Character: Reports: Dull pain, Aching pain Aggravating: Reports: None Associated Signs and Symptoms: Reports: URI symptoms Ear Surgical History: None Vesicles to External Pinna: No Vesicles to Tragus: No TMJ Tenderness: Right Tympanic Membrane: Erythema, Dullness Differential Diagnoses: Otitis Media Review of Systems - Review Of Systems Constitutional: Reports: No symptoms Eyes: Reports: No symptoms Ears, Nose, Mouth, Throat: Reports: Ear pain Respiratory: Reports: No symptoms Cardiac: Reports: No symptoms GI: Reports: No symptoms : Reports: No symptoms Musculoskeletal: Reports: No symptoms Skin: Reports: No symptoms Neurological: Reports: No symptoms Endocrine: Reports: No symptoms Hematologic/Lymphatic: Reports: No symptoms All Other Systems: Reviewed and Negative Past Medical History - Past Medical History Previously Healthy: Yes Endocrine: Reports: Unknown Cardiovascular: Reports: Hypertension Respiratory: Reports: Unknown Hematological: Reports: Unknown Gastrointestinal: Reports: Unknown Genitourinary: Reports: Unknown Neuro/Psych: Reports: Anxiety Musculoskeletal: Reports: Unknown Cancer: Reports: Unknown - Surgical History General Surgical History: Reports: Unknown - Family History Family History: Reports: Unknown - Social History Smoking Status: Never smoker Hx Substance Use: No Alcohol Screening: None - Immunizations Tetanus Shot up to Date: No Physical Exam - Physical Exam Appearance: Well-appearing, No pain distress, Well-nourished Pain Distress: Mild Eyes: ISAÍAS, EOMI, Conjunctiva clear ENT: Nose normal, Oropharynx normal Neck: Supple Respiratory: Airway patent Cardiovascular: RRR, Pulses normal, No rub, No murmur GI/: Soft Musculoskeletal: Normal strength Skin: Warm, Dry, Normal color Neurological: Sensation intact, Motor intact, Reflexes intact, Cranial nerves intact, Alert, Oriented Psychiatric: Affect appropriate Critical Care Note - Critical Care Note Total Time (mins): 0 Course - Course Vital Signs: Temp Pulse Resp BP Pulse Ox 07/20/18 03:02 98.5 F 92 H 18 173/134 H 95 Departure - Departure Time of Disposition: 03:15 Disposition: HOME SELF-CARE Discharge Problem: Otitis media Qualifiers: Otitis media type: suppurative Chronicity: acute Laterality: right Recurrence: non-recurrent Spontaneous tympanic membrane rupture: without spontaneous rupture Qualified Code(s): H66.001 - Acute suppurative otitis media without spontaneous rupture of ear drum, right ear Instructions: Ear Infection (ED) Condition: Good Pt referred to PMD for follow-up: No IPMP verified?: No Additional Instructions: augmentin 875mg bid x 7 days---toradol 10mg qid prn pain #16---f/u with dr sauceda in a few days to [facility] ear Allergies/Adverse Reactions: Allergies blueberry [Blueberry] Allergy (Severe, Verified 07/20/18 03:04) Anaphylaxis cinnamon Allergy (Mild, Verified 07/20/18 03:04) Disposition Discussed With: Patient
== END 2018-07-20 03:20 | disposition home or self-care (01) ==
LOC: ED 03:01
DX: H66.001 Acute suppurative otitis media without spontaneous rupture of ear drum, right ear (principal); I10 Essential (primary) hypertension
CPT/HCPCS: 99282